=== PATIENT | male | born 1935 | race Caucasian/White ===

== ENCOUNTER 2021-06-09 15:10 | Outpatient (CLI) | payer MEDICARE, BC, SELFPAY ==
--- NOTE | ~2021-06-09 | XR_ITS ---
EXAMINATION: XR lumbar spine min 4V DATE: 06/09/2021 15:49 INDICATION: Low back pain TECHNIQUE: Anteroposterior, lateral, and bilateral oblique views of the lumbar spine, and cone-down l ateral view of the lumbosacral junction were obtained. COMPARISON: MRI, 10/24/2017 FINDINGS: There are 3 mm of stable retrolisthesis of L1 on L2, 5 mm of stable retrolisthesis of L2 on L3, 3 mm of stable retrolisthesis of L3 on L4, and 3 mm of stable anterolisthesis of L5 on S1. There are 5 mm of new anterolisthesis of L4 on L5. The vertebral body heights are maintained. There is mod erate loss of intervertebral disc space height at L2-3, L4-5, and L5-S1. The vertebral body heights a re maintained. Degenerative osteophytes project from the anterior endplates of multiple vertebral bod ies. 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 Lumbar dextrocurvature is note d. There are changes of left hip arthroplasty. IMPRESSION: 1. Moderate to severe lumbar spondylosis with interval worsening. Reviewed, dictated and finalized at location F.
== END 2021-06-09 15:11 | disposition home or self-care (01) ==
LOC: ANHIMG 15:16
PROVIDERS: PCP Family Medicine; Visit Provider Family Medicine
DX: M47.896 Other spondylosis, lumbar region (principal)
CPT/HCPCS: 72110

== ENCOUNTER 2021-10-17 11:01 | Emergency (ER) | payer MEDICARE, BC, SELFPAY ==
--- NOTE | ~2021-10-17 | XR_ITS ---
XR ankle LT min 3V 10/17/2021 11:34 INDICATION: Left ankle pain PROCEDURE: 4 views left ankle COMPARISON: No prior studies for comparison. FINDINGS: Fracture, dislocation or subluxation is not identified. There are vascular calcifications. There are degenerative calcaneal enthesophytes. The soft tissues appear within normal limits. No for eign bodies are identified. IMPRESSION: 1: NO ACUTE BONE OR JOINT ABNORMALITY IDENTIFIED. Reviewed, dictated and finalized at location B. PURPOSE CLERK
--- NOTE | 2021-10-17 11:11 | ED.EXTPRO ---
HPI - Extremity Problem General Chief complaint: Extremity Problem,Nontraumatic Stated complaint: Lt Ankle Pain History of Present Illness HPI Narrative: This is a 85 year old male that presents to the emergency room complaining of a rash with some redness of the ankle and pain to the ankle that is shooting pain without any injuries noted. no Diabetes and patient has dementia Related Data Home Medications Medication Instructions Recorded Confirmed aspirin 81 mg tablet,delayed 81 mg PO DAILY 10/09/19 10/17/21 release nybmoacmenie-rbb-lklix acid-vit 1 tablet PO DAILY 04/19/20 10/17/21 K-lycop 400 mcg-20 mcg-370 mcg tablet vitamin B complex 1 tablet PO DAILY 08/23/20 08/30/21 donepezil 5 mg tablet 5 mg PO QHS 04/28/21 10/17/21 omega-3 fatty acids 500 mg PO DAILY 04/28/21 10/17/21 Allergies Allergy/AdvReac Type Severity Reaction Status Date / Time lisinopril Allergy Unknown cough Verified 08/30/21 13:33 No Known Allergies Allergy Unknown Verified 08/30/21 13:33 Review of Systems Review of Systems: ankle reddness, rash, erythema, All systems reviewed & are unremarkable except as noted in HPI and below PMFSH Past Medical History Medical History Cataract Esophagitis intermediate use of drug Surgical History Surgical History H/O angioplasty H/O arthroplasty History of back surgery Family History Family History Mother Family history of malignant neoplasm of breast in first degree relative Other No family history of cardiovascular disease Social History Social History Alcohol intake: never Substance use type: does not use Gender identity (if verbalized by the patient): Male Comments At time as signature, I have reviewed and agree with nursing past medical, social, surgical and family history. Please see nursing chart for further information. There is no relevant family history pertinent to the presenting complaint. Exam Narrative: GENERAL:Well-appearing, well-nourished, and in no acute distress. HEAD:Normocephalic EYES: PERRLA ENT: Nares clear, no rhinorrhea or epistaxis. Mucous membranes moist. CHEST: No respiratory distress. HEART: Regular rate and rhythm decreased peripheral pulses. ABDOMEN: Soft, nontender, nondistended, normal active bowel sounds. EXTREMITIES:decreased range of motion. 1+ edema. SKIN: Warm, dry, no rash. right ankle area with erythema and some warmth noted NEURO: No focal deficits. Alert and oriented x2. Course Course Level of Care: Express Care Visit Vital Signs Vital signs: Vital Signs Temperature 98.5 F 10/17/21 11:14 Pulse Rate 73 10/17/21 11:14 Respiratory Rate 20 10/17/21 11:14 Blood Pressure 128/83 10/17/21 11:14 Pulse Oximetry 96 10/17/21 11:14 Temperature 98.5 F 10/17/21 11:14 Pulse Rate 73 10/17/21 11:14 Respiratory Rate 20 10/17/21 11:14 Blood Pressure 128/83 10/17/21 11:14 Pulse Oximetry 96 10/17/21 11:14 Discharge Plan Discharge Clinical Impression: Cellulitis of left ankle, Rash and nonspecific skin eruption, Pain Patient Disposition: Home, Self-Care Condition: Stable Instructions: Antibiotic Form, Cephalexin (By mouth), Cellulitis (ED), Acute Rash (ED) Additional Instructions: Instructions use skin creams/lotion, such as those containing calamine or pramoxine to reduce itchiness Avoid scratching when possible to prevent worsening of the condition and disruption of the skin that could lead to bacterial infection To relieve itching, place a cool washcloth or some ice over the area that itches, rather than scratching Return to the office or seek ER visit if condition is not improving or worsens with fever, swelling, difficulty breathing or swallowing. Presc
[2021-10-17 11:14] VITALS: BP 128/83; PULSE 73; RESP 20; TEMP 36.9; O2SAT 96
== END 2021-10-17 12:10 | disposition home or self-care (01) ==
PROVIDERS: Emergency Provider Nurse Practitioner Family; PCP Family Medicine
DX: L03.116 Cellulitis of left lower limb (principal); R21 Rash and other nonspecific skin eruption; R52 Pain, unspecified; F03.90 Unspecified dementia, unspecified severity, without behavioral disturbance, psychotic disturbance, mood disturbance, and anxiety; Z95.1 Presence of aortocoronary bypass graft
CPT/HCPCS: 73610; 99213; G0463

== ENCOUNTER 2022-09-20 12:52 | Outpatient (CLI) | payer MEDICARE, BC, SELFPAY ==
--- NOTE | ~2022-09-20 | CT_ITS ---
EXAMINATION: CT UE LT wo/w con DATE: 09/20/2022 13:25 INDICATION: Squamous cell carcinoma TECHNIQUE: High resolution computed tomography (CT) of the left arm from the elbow through the hand w as performed without and with 100 mL Omnipaque-350 intravenous contrast. The patient was unable to el evate the arm above the head and therefore the patient was scanned in the supine position with the le ft forearm placed across the patient's abdomen Additional sagittal and coronal reconstructions were p erformed. Automated exposure control and iterative reconstruction technique were employed. The dose-l ength product was 633.09 mGy-cm. COMPARISON: None FINDINGS: Bone alignment is normal. No fracture. Polyarticular osteoarthritis, severe at the first carpometacar pal joint and mild at the left elbow, triscaphe joint and multiple interphalangeal joints. No suspici ous lytic or blastic bone lesions. There is a tiny metallic foreign body in the soft tissues along th e dorsal head of the third metacarpal reportedly near the site of a reported squamous cell carcinoma resection. No abnormal soft tissue masses or epitrochlear lymph nodes at the elbow. No left elbow mitzi nt effusion or other abnormal fluid collections. Calcified nodule at the right lower lobe, single hepatic calcific location and multiple small splenic calcifications, all consistent with old granulomatous disease., Bladder, pancreas, bilateral adrenal glands and kidneys are normal. There are few diverticula along the proximal descending colon without adjacent inflammatory stranding to suggest either discitis. Remaining visualized bowels in the abdom en are unremarkable. No pathologically enlarged abdominal lymphadenopathy. There are bridging osteoph ytes at a few levels in the lower thoracic and upper lumbar spine consistent with diffuse idiopathic skeletal hyperostosis (DISH). Mild upper lumbar spondylosis with 3-4 mm retrolisthesis L1 on L2 and L 2 on L3. IMPRESSION: 1. Tiny metallic foreign body in the soft tissues dorsal to the head of the third metacarpal which ma y be related to reported resection of a prior squamous cell carcinoma. 2. No suspicious lytic or blastic bone lesions, abnormal masses, pathologically enlarged lymph nodes or fluid collections in the left hand, wrist, 4 more distal upper arm. Of note, given the significant degree of soft tissue contrast, small pghzh-xm-oxlf pre and postcontrast MRI localized to the region of concern would be more sensitive than CT for residual or locally recurrent disease. Reviewed, dictated and finalized at location A. N DRIER IMPRESSION: 1. Tiny metallic foreign body in the soft tissues dorsal to the head of the thi rd metacarpal which may be related to reported resection of a prior squamous ce ll carcinoma. 2. No suspicious lytic or blastic bone lesions, abnormal masses, pathologically enlarged lymph nodes or fluid collections in the left hand, wrist, 4 more dist al upper arm. Of note, given the significant degree of soft tissue contrast, sm all kaufc-nm-kdys pre and postcontrast MRI localized to the region of concern w ould be more sensitive than CT for residual or locally recurrent disease.
== END 2022-09-20 12:53 | disposition home or self-care (01) ==
PROVIDERS: PCP Family Medicine
DX: C44.92 Squamous cell carcinoma of skin, unspecified (principal); S60.852A Superficial foreign body of left wrist, initial encounter; X58.XXXA Exposure to other specified factors, initial encounter
CPT/HCPCS: 73202; Q9967

== ENCOUNTER 2023-07-31 13:22 | Inpatient (IN) | payer MEDICARE, BC, SELFPAY ==
--- NOTE | ~2023-07-31 | CT_ITS ---
EXAMINATION: CT brain wo con DATE: 07/31/2023 14:55 INDICATION: head injury . TECHNIQUE: Computed tomography (CT) of the head was performed without intravenous contrast. The mA wa s adjusted according to patient size. Iterative reconstruction technique was employed. The dose-lengt h product was 605.33 mGy-cm. COMPARISON: None. FINDINGS: No acute intracranial hemorrhage or extra-axial fluid collection. No hydrocephalus, mass, or herniation. No acute ischemic infarct. Unremarkable dural venous sinus attenuation. No acute osseous abnormality. The aerated spaces are clear. Moderate atrophy and severe chronic white matter change. Atherosclerotic intracranial calcification. Bilateral lens replacements. Old bilateral basal ganglia calcifications and lacunar infarcts. Old ivana ateral cerebellar infarcts. 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 IMPRESSION: No acute intracranial process. Reviewed, dictated and finalized at location K. OW GLAZIER
--- NOTE | ~2023-07-31 | XR_ITS ---
EXAMINATION: XR chest 2V DATE: 07/31/2023 14:49 INDICATION: Weakness TECHNIQUE: Frontal and lateral views of the chest are obtained COMPARISON: None available FINDINGS: There is mild atelectasis of the lung bases. No pleural effusion or pneumothorax. The cardi omediastinal silhouette is normal. There are bridging osteophytes at multiple levels in the spine, co nsistent with diffuse idiopathic skeletal hyperostosis (DISH). IMPRESSION: 1. Mild atelectasis of the lung bases. Reviewed, dictated and finalized at location L. ING MACHINE FEEDER
[2023-07-31 13:27] VITALS: BP 112/65; PULSE 74; RESP 20; TEMP 36.5; O2SAT 95
--- NOTE | 2023-07-31 13:33 | ECG_ITS ---
Measurements Intervals [place] Rate: 77 P: 60 NM: 152 QRS: -49 QRSD: 142 T: 67 QT: 401 QTc: 456 Interpretive Statements SINUS RHYTHM FREQUENT ATRIAL PREMATURE COMPLEXES LEFT AXIS DEVIATION RIGHT BUNDLE BRANCH BLOCK INFERIOR INFARCT, AGE INDETERMINATE BASELINE ARTIFACT- I, II, III, AVR, AVL, AVF, V3, V5 ABNORMAL ECG NO PREVIOUS ECG AVAILABLE FOR COMPARISON Electronically Signed On 07-31-2023 13:59:05 FURNITURE RESTORER by Shan Rivera D.O.
[2023-07-31 13:51] LABS: Basophils Absolute Auto 0.1 K/mm3 (0.0-0.1); Basophils Percent Auto 0.5 % (0.2-1.2); Eosinophils Absolute Auto 0.2 K/mm3 (0-0.3); Eosinophils Percent Auto 1.3 % (0-4.4); Immature Granulocyte Absolute 0.03 K/mm3 (0.00-0.031); Immature Granulocyte Percent A 0.3 % (0-0.5); Lymphocytes Absolute Auto 2.15 K/mm3 (0.9-3.2); Lymphocytes Percent Auto 18.9 % (18.3-44.2); Mean Corpuscular HGB Conc 34.8 g/dl (32-36); Mean Corpuscular Hemoglobin 30.3 pg (26-34); Mean Corpuscular Volume 87.1 fl (80-100); Mean Platelet Volume 10.1 fl (7.4-10.4); Monocytes Absolute Auto 1.3 K/mm3 (0.1-0.6); Monocytes Percent Auto 11.2 % (2.6-8.5); Neutrophils Absolute Auto 7.7 K/mm3 (1.3-6.7); Neutrophils Percent Auto 67.8 % (45.5-73.1); Platelet Count Result 180 k/mm3 (150-375); Red Blood Count 5.28 M/mm3 (4.6-6.20); Red Cell Distribution Width 12.6 % (11.5-14.5); White Blood Count 11.4 K/mm3 (4.5-10.0)
[2023-07-31 14:06] LABS: Alanine Aminotransferase 19 U/L (6-50); Albumin Level 4.7 g/dL (3.5-5.1); Alkaline Phosphatase 92 U/L (38-126); Anion Gap 11 mmol/L (8-16); Aspartate Amino Transferase 22 U/L (17-59); Blood Urea Nitrogen 27 mg/dL (9-20); Calcium 9.8 mg/dL (8.4-10.2); Carbon Dioxide 26 mmol/L (22-30); Chloride 102 mmol/L (98-107); Estimated Glomerular Filt Rate 44; Glucose 99 mg/dL (65-110); Potassium 3.4 mmol/L (3.4-5.0); Sodium 139 mmol/L (137-145)
[2023-07-31 14:13] VITALS: BP 120/77; PULSE 68; RESP 19; O2SAT 92
--- NOTE | 2023-07-31 14:33 | ED.NAVMDI ---
HPI - Nausea/Vomiting/Diarrhea General Chief complaint: Nausea/Vomiting/Diarrhea Stated complaint: Nausea, weak Time Seen by Provider: 07/31/23 14:21 History of Present Illness HPI Narrative: Pt has intermittent vomiting for two weeks per family. Pt has now gotten so weak that he has trouble walking and last night he had a ground level fall. Pt did not strike head or lose consciousness and denies injury but family is concerned about his progressive weakness and now falls. Related Data Home Medications Medication Instructions Recorded Confirmed aspirin 81 mg tablet,delayed 81 mg PO DAILY 10/09/19 07/31/23 release xpzzwmeeoect-yvv-sstac acid-vit 1 tablet PO DAILY 04/19/20 07/31/23 K-lycop 400 mcg-20 mcg-370 mcg tablet (Men's 50 Plus Multivitamin) vitamin B complex (B 1 tablet PO DAILY 08/23/20 07/31/23 Complex-Vitamin B12 tablet) omega-3 fatty acids 500 mg PO DAILY 04/28/21 07/31/23 memantine 5 mg tablet 5 mg PO BID 10/16/22 07/31/23 levothyroxine 13 mcg capsule 13 mcg PO DAILY 07/31/23 07/31/23 Allergies Allergy/AdvReac Type Severity Reaction Status Date / Time lisinopril Allergy Unknown cough Verified 07/31/23 17:48 Review of Systems Review of Systems: All systems reviewed & are unremarkable except as noted in HPI and below PMFSH Past Medical History Medical History (Updated 07/31/23 @ 17:47 by Behzad Quarles MD) Cataract Dyslipidemia Esophagitis senior care use of drug Severe recurrent major depression Surgical History Surgical History H/O angioplasty H/O arthroplasty History of back surgery Family History Family History Mother Family history of malignant neoplasm of breast in first degree relative Other No family history of cardiovascular disease Social History Social History Smoking status: Never smoker Alcohol intake: never Substance use: never Substance use type: does not use Lack of Transportation: No Lack of Food: Never True Current Housing: I Have Housing Concerned About Future Housing: No Difficulty Paying Gas/Electric Bills: No Difficulty Paying for Meds: No Currently Unemployed: No Education: Decline to Answer Difficulty w/ Childcare or Family Care: No Living arrangements: with family Occupation/Education: retired Gender identity (if verbalized by the patient): Male Spiritual care concerns: No Exam Const: General: healthy appearing and no acute distress Nutritional Appearance: well nourished Orientation/consciousness: patient oriented x3 Limitations: no limitations HENMT: Head: normal to inspection Mouth: Yes Normal oral and palatal mucosa present Eyes: Conjunctivae: conjunctivae normal Pupils: Equal, round and reactive pupils present EOM: EOMs intact bilaterally Neck: Neck: normal visual inspection and no lymphadenopathy Resp: Effort & Inspection: normal respiratory effort Auscultation: clear to auscultation bilaterally Cardio: Rate: regular rate GI: GI Palp: Yes Soft to palpation and No Tenderness to palpation present (GI) Auscultation: normal bowel sounds Back/Spine/Pelvis: Back: no CVA tenderness Skin: General skin exam: normal color Wounds: no wounds Neuro: General: patient oriented x3, moves all extremities, no meningeal signs, no focal motor deficits and CN's II-XI intact bilaterally Speech: normal speech Extrem: General: normal to inspection and no clubbing, cyanosis or edema Psych: Mental Status: mental status grossly normal Affect: normal affect Attitude: cooperative Course Vital Signs Vital signs: Vital Signs Temperature 97.7 F 07/31/23 13:27 Pulse Rate 74 07/31/23 13:27 Respiratory Rate 20 07/31/23 13:27 Blood Pressure 112/65 07/31/23 13:27 Pulse Oximetry 95 07/31/23 13:27 Oxygen Delivery Room Air
[2023-07-31 16:14] LABS: Appearance Urine Clear (Clear); Bacteria Urine None Seen /hpf; Bilirubin Urine Negative (Negative); Blood Urine Negative (Negative); Color Urine Dark Yellow (Yellow); Glucose Urine UA Negative (Negative); Ketones Urine Trace mg/dL (Negative); Leukocyte Esterase Ur Trace LEU/UL (Negative); Nitrate Urine Negative (Negative); Non Pathogenic Casts 0-2; Protein Urine 1+ mg/dL (Negative); RBC Urine 0-2 /hpf (0-2); Squamous Epithelial Cell Urine None seen /hpf (Few); WBC Urine 0-5 /hpf
[2023-07-31 16:16] LABS: Add Urine Microscopic? YES
--- NOTE | 2023-07-31 16:47 | PM.IMHP ---
H&P: HPI History of Present Illness Date/Time: 07/31/23 16:48 Chief Complaint: Fatigue Anorexia Nausea; Vomting Narrative: Jason Jean-Baptiste is an 87 yo M with a mHx significant for dementia, Hypertension, dyslipidemia, [place], GERD, depression, inactivity and Hypothyroidism. With the following information gathered from his and daughter due to dementia and difficult hearing, he is said to have over the last few months, resorted to a sedentary lifestyle. When he eventually ambulates, he is stooped and unstable; with no know modifying factors, it came to be associated wtih a poor appetite, poor water intake and worsening fatigue which affected his ADLs. There were no recorded episodes of fevers, chills, rigors, flank pain, cough, chest pain, leg swelling, dizziness or LOC. He is however said to have frequent nausea with non-bloody, sometimes bilious emesis, void of blood. His stools are constipated but regular; With his state worsening, he required multiple hands to assist him to the vehicle in a bid to get him to the ED for expert evaluation. He does not smoke/chew tobacco, vape nicotine, drink alcohol or consume recreational/illicit drugs; his family Hx is signficant for dementia in his mother ED work-up findings: Na 139 K 3.4 BUn 27 Cr 1.5 Hb 16 WBC 11 UA: Trace LE; +ketones; -ve nitrites; CXR: Bibasilar atelectasis He will be admitted, evaluated and managed for physical deconditioning with a mild UTI and likely GERD causing nausea and emesis. 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 Severe recurrent major depression Surgical History Surgical History H/O angioplasty H/O arthroplasty History of back surgery Family History Family History Mother Family history of malignant neoplasm of breast in first degree relative Other No family history of cardiovascular disease Social History Social History Smoking status: Never smoker Alcohol intake: never Substance use type: does not use Lack of Transportation: No Lack of Food: Never True Current Housing: I Have Housing Concerned About Future Housing: No Difficulty Paying Gas/Electric Bills: No Difficulty Paying for Meds: No Currently Unemployed: No Education: Decline to Answer Difficulty w/ Childcare or Family Care: No Living arrangements: with family Occupation/Education: retired Gender identity (if verbalized by the patient): Male Spiritual care concerns: No Meds Home Medications and Allergies Home Medications Medication Instructions Recorded Confirmed Type aspirin 81 mg tablet,delayed 81 mg PO DAILY 10/09/19 05/08/23 History release thvtnjgbkmev-kpk-zjkoi acid-vit 1 tablet PO DAILY 04/19/20 05/08/23 History K-lycop 400 mcg-20 mcg-370 mcg tablet (Men's 50 Plus Multivitamin) vitamin B complex (B 1 tablet PO DAILY 08/23/20 05/08/23 History Complex-Vitamin B12 tablet) omega-3 fatty acids 500 mg PO DAILY 04/28/21 05/08/23 History amlodipine 10 mg tablet 10 mg PO DAILY #90 tabs 09/04/22 05/08/23 Rx rosuvastatin 5 mg tablet 5 mg PO DAILY #90 tabs 09/04/22 05/08/23 Rx memantine 5 mg tablet 5 mg PO BID 10/16/22 05/08/23 History donepezil 10 mg tablet 10 mg PO QHS #90 tabs 11/06/22 05/08/23 Rx hydrochlorothiazide 25 mg tablet 25 mg PO DAILY #90 tabs 12/04/22 05/08/23 Rx sertraline 50 mg tablet 50 mg PO DAILY #90 tabs 01/05/23 05/08/23 Rx prochlorperazine maleate 5 mg 5 mg PO Q6-8H PRN nausea and 03/13/23 05/08/23 Rx tablet vomiting #90 tabs levothyroxine 13 mcg capsule See Rx Instructions .Route 08
[2023-07-31 17:11] VITALS: BP 131/82; PULSE 72; RESP 16; O2SAT 95
[2023-07-31 17:12] VITALS: BP 131/82; PULSE 71; RESP 20; O2SAT 95
--- NOTE | 2023-07-31 17:48 | ADMGEN ---
This patient, Jason Jean-Baptiste, was admitted to 3 [facility] Surg Room 304-01. Patient/family oriented to hospital policies and general routines including ID bracelet, bed and alarms, visiting hours, pain management, procedures, bathroom and other care routines, personal items, smoking policy, room service/diet, and visiting hours. Information on how to activate the Rapid Response Team has been discussed. Patient/Family are encouraged to report perceived risks to care and to ask questions if they do not understand what they are told or what they should do.
[2023-07-31 18:04] LABS: Free T4 Free Thyroxine 1.28 ng/mL (0.78-2.19)
[2023-07-31 18:06] VITALS: BP 137/85; PULSE 58; RESP 18; TEMP 36.3; O2SAT 93
[2023-07-31] MEDS: SODIUM CHLORIDE 0.9% IV 1,000 ML 100 ML IV CONT (18:34)
[2023-07-31 22:00] VITALS: BP 129/72; PULSE 69; RESP 22; TEMP 36.6; O2SAT 99
[2023-08-01 05:54] LABS: Basophils Absolute Auto 0.1 K/mm3 (0.0-0.1); Basophils Percent Auto 0.8 % (0.2-1.2); Eosinophils Absolute Auto 0.2 K/mm3 (0-0.3); Hematocrit 40.8 % (42.0-52.0); Hemoglobin 13.9 g/dL (14.0-18.0); Immature Granulocyte Absolute 0.04 K/mm3 (0.00-0.031); Immature Granulocyte Percent A 0.4 % (0-0.5); Lymphocytes Absolute Auto 2.76 K/mm3 (0.9-3.2); Lymphocytes Percent Auto 24.6 % (18.3-44.2); Mean Corpuscular HGB Conc 34.1 g/dl (32-36); Mean Corpuscular Hemoglobin 30.5 pg (26-34); Mean Corpuscular Volume 89.7 fl (80-100); Mean Platelet Volume 10.3 fl (7.4-10.4); Monocytes Absolute Auto 1.5 K/mm3 (0.1-0.6); Monocytes Percent Auto 12.9 % (2.6-8.5); Neutrophils Absolute Auto 6.7 K/mm3 (1.3-6.7); Neutrophils Percent Auto 59.3 % (45.5-73.1); Platelet Count Result 160 k/mm3 (150-375); Red Blood Count 4.55 M/mm3 (4.6-6.20); Red Cell Distribution Width 12.5 % (11.5-14.5); White Blood Count 11.2 K/mm3 (4.5-10.0)
[2023-08-01 06:00] VITALS: BP 119/70; PULSE 60; RESP 18; TEMP 36.4; O2SAT 90
[2023-08-01 06:15] LABS: Alanine Aminotransferase 16 U/L (6-50); Albumin Level 3.8 g/dL (3.5-5.1); Alkaline Phosphatase 74 U/L (38-126); Anion Gap 7 mmol/L (8-16); Aspartate Amino Transferase 20 U/L (17-59); Bilirubin,Total 0.9 mg/dL (0.2-1.3); Blood Urea Nitrogen 23 mg/dL (9-20); Calcium 8.6 mg/dL (8.4-10.2); Carbon Dioxide 27 mmol/L (22-30); Chloride 105 mmol/L (98-107); Estimated Glomerular Filt Rate 48; Glucose 94 mg/dL (65-110); Potassium 2.8 mmol/L (3.4-5.0); Sodium 139 mmol/L (137-145)
[2023-08-01 06:40] VITALS: BMI 28.8
[2023-08-01] MEDS: POTASSIUM CHLORIDE INJ 40 MEQ in SODIUM CHLORIDE 0.9% IV 500 ML 130 MEQ IVPB (07:38)
[2023-08-01] MEDS: ENOXAPARIN 40 MG/0.4 ML SYRINGE SUB-Q (08:16)
[2023-08-01 11:16] VITALS: BMI 28.8
--- NOTE | 2023-08-01 12:34 | PM.IMPN ---
Progress Note: A&P Assessment and Plan (1) Physical deconditioning: Code(s): R53.81 - Other malaise Status: Acute Assessment and Plan: Likely 2/2 chronic sedentary status PT/OT evaluation Dementia likely plays a role in decline; may hamper physical rehabilitation. (2) GERD (gastroesophageal reflux disease): Qualifiers: Esophagitis presence: without esophagitis Qualified Code(s): K21.9 - Gastro-esophageal reflux disease without esophagitis Code(s): K21.9 - Gastro-esophageal reflux disease without esophagitis Status: Acute Assessment and Plan: Chronic Probably aggravated by laying supine (3) UTI (urinary tract infection): Qualifiers: Hematuria presence: without hematuria Urinary tract infection type: site unspecified Qualified Code(s): N39.0 - Urinary tract infection, site not specified Code(s): N39.0 - Urinary tract infection, site not specified Status: Acute Assessment and Plan: Ceftriaxone con't (4) MAMTA (acute kidney injury): Code(s): N17.9 - Acute kidney failure, unspecified Status: Acute Assessment and Plan: Probably 2/2 poor PO intake 1. IVFs; Monitor renal function 2. K+ 2.8 this am, given IV replacement and will recheck in am (5) Nausea & vomiting: Qualifiers: Vomiting type: unspecified Qualified Code(s): R11.2 - Nausea with vomiting, unspecified Code(s): R11.2 - Nausea with vomiting, unspecified Status: Acute Assessment and Plan: Likely 2/2 chronic supine positioning Hx of GERD Elevate head of bed; 45+ (6) Dementia: Qualifiers: Alzheimer's disease onset: other onset Dementia behavioral or psychological symptom: with mood disturbance Dementia severity: severe Dementia type: Alzheimer's Qualified Code(s): G30.8 - Other Alzheimer's disease; F02.C3 - Dementia in other diseases classified elsewhere, severe, with mood disturbance Code(s): F03.90 - Unspecified dementia, unspecified severity, without behavioral disturbance, psychotic disturbance, mood disturbance, and anxiety Status: Chronic Assessment and Plan: Falls and safety precautions Resume Donepezil (7) Hypertension: Qualifiers: Hypertension type: primary hypertension Qualified Code(s): I10 - Essential (primary) hypertension Code(s): I10 - Essential (primary) hypertension Status: Chronic Assessment and Plan: Resume anti-hypertensives Hold KAYLEE-i and diuretics in light of MAMTA (8) Severe recurrent major depression: Qualifiers: Psychotic features: without psychotic features Qualified Code(s): F33.2 - Major depressive disorder, recurrent severe without psychotic features Code(s): F33.2 - Major depressive disorder, recurrent severe without psychotic features Status: Chronic Assessment and Plan: Resume Sertraline (9) Dyslipidemia: Code(s): E78.5 - Hyperlipidemia, unspecified Status: Chronic Assessment and Plan: Resume Statin Plan IVFs; Monitor renal function; Avoid nephrotoxins Resume Home medications for dyslipidemia, HTN, depression, Hypothyroidism PT/OT eval and Rx Falls and safety precautions Subjective Date/time seen: 08/01/23 12:34 Interval history: Patient is an 87 YO male with a PMH significant for dementia, Hypertension, dyslipidemia, [place], GERD, depression, inactivity and Hypothyroidism.He was a bit agitated this morning and wanted me to call his to take him out of here. He was confused as to why he is here and wanted to go home. He quickly became apologetic and kind, he was not abrasive but did inaja back to stating his educational and work history. He denies any n/v this morning, but has not eaten breakfast. He has progressively weakened at home and it is affecting his ability to perform ADL. PT and OT consulted for this.He is however said to have frequent nausea with non-
[2023-08-01] MEDS: SODIUM CHLORIDE 0.9% IV 1,000 ML 100 ML IV CONT ×2 (12:49→22:19)
[2023-08-01 14:00] VITALS: BP 103/66; PULSE 73; RESP 16; TEMP 36.4; O2SAT 94
[2023-08-01 20:35] VITALS: BP 123/83; PULSE 72; RESP 18; TEMP 36.4; O2SAT 95
[2023-08-02] MEDS: ACETAMINOPHEN 325 MG TABLET 650 MG PO (05:37)
[2023-08-02 05:52] VITALS: BP 90/52; PULSE 66; RESP 17; TEMP 36.5; O2SAT 97
[2023-08-02 06:04] LABS: Basophils Absolute Auto 0.1 K/mm3 (0.0-0.1); Basophils Percent Auto 0.8 % (0.2-1.2); Eosinophils Absolute Auto 0.3 K/mm3 (0-0.3); Eosinophils Percent Auto 2.9 % (0-4.4); Hematocrit 41.1 % (42.0-52.0); Hemoglobin 13.7 g/dL (14.0-18.0); Immature Granulocyte Absolute 0.04 K/mm3 (0.00-0.031); Immature Granulocyte Percent A 0.4 % (0-0.5); Lymphocytes Absolute Auto 3.05 K/mm3 (0.9-3.2); Lymphocytes Percent Auto 27.6 % (18.3-44.2); Mean Corpuscular HGB Conc 33.3 g/dl (32-36); Mean Corpuscular Hemoglobin 30.4 pg (26-34); Mean Corpuscular Volume 91.1 fl (80-100); Mean Platelet Volume 10.6 fl (7.4-10.4); Monocytes Absolute Auto 1.4 K/mm3 (0.1-0.6); Monocytes Percent Auto 12.8 % (2.6-8.5); Neutrophils Absolute Auto 6.1 K/mm3 (1.3-6.7); Neutrophils Percent Auto 55.5 % (45.5-73.1); Platelet Count Result 154 k/mm3 (150-375); Red Blood Count 4.51 M/mm3 (4.6-6.20); Red Cell Distribution Width 12.8 % (11.5-14.5)
[2023-08-02 06:13] LABS: Alanine Aminotransferase 16 U/L (6-50); Albumin Level 3.7 g/dL (3.5-5.1); Alkaline Phosphatase 67 U/L (38-126); Anion Gap 7 mmol/L (8-16); Aspartate Amino Transferase 21 U/L (17-59); Bilirubin,Total 0.8 mg/dL (0.2-1.3); Blood Urea Nitrogen 20 mg/dL (9-20); Calcium 8.3 mg/dL (8.4-10.2); Carbon Dioxide 26 mmol/L (22-30); Chloride 109 mmol/L (98-107); Estimated CRCL calculation 27 ml/min; Estimated Glomerular Filt Rate 44; Glucose 88 mg/dL (65-110); Potassium 3.1 mmol/L (3.4-5.0); Sodium 142 mmol/L (137-145)
[2023-08-02 08:00] VITALS: BP 111/64; PULSE 61; RESP 14; TEMP 36.2; O2SAT 96
[2023-08-02] MEDS: ENOXAPARIN 40 MG/0.4 ML SYRINGE SUB-Q (09:26)
[2023-08-02] MEDS: SODIUM CHLORIDE 0.9% IV 1,000 ML 100 ML IV CONT (10:01)
[2023-08-02] MEDS: POTASSIUM CHLORIDE INJ 40 MEQ in SODIUM CHLORIDE 0.9% IV 500 ML 130 MEQ IVPB (10:02)
[2023-08-02 12:00] VITALS: BP 115/69; PULSE 61; RESP 16; TEMP 36.7; O2SAT 97
--- NOTE | 2023-08-02 13:13 | PM.IMPN ---
Progress Note: A&P Assessment and Plan (1) Physical deconditioning: Code(s): R53.81 - Other malaise Status: Acute Assessment and Plan: Likely 2/2 chronic sedentary status PT/OT evaluation - would likely benefit from SNF placement at discharge Dementia likely plays a role in decline; may hamper physical rehabilitation. (2) GERD (gastroesophageal reflux disease): Qualifiers: Esophagitis presence: without esophagitis Qualified Code(s): K21.9 - Gastro-esophageal reflux disease without esophagitis Code(s): K21.9 - Gastro-esophageal reflux disease without esophagitis Status: Acute Assessment and Plan: Chronic, no issues while inpatient Keep head up bed at 45 degrees (3) UTI (urinary tract infection): Qualifiers: Urinary tract infection type: site unspecified Hematuria presence: without hematuria Qualified Code(s): N39.0 - Urinary tract infection, site not specified Code(s): N39.0 - Urinary tract infection, site not specified Status: Acute Assessment and Plan: Ceftriaxone con't continue to monitor WBC (4) MAMTA (acute kidney injury): Code(s): N17.9 - Acute kidney failure, unspecified Status: Acute Assessment and Plan: Probably 2/2 poor PO intake 1. IVFs; Monitor renal function 2. K+ 3.1 this am, given IV replacement and will recheck in am (5) Nausea & vomiting: Qualifiers: Vomiting type: unspecified Qualified Code(s): R11.2 - Nausea with vomiting, unspecified Code(s): R11.2 - Nausea with vomiting, unspecified Status: Acute Assessment and Plan: Likely 2/2 chronic supine positioning Hx of GERD Elevate head of bed; 45+ (6) Dementia: Qualifiers: Dementia type: Alzheimer's Alzheimer's disease onset: other onset Dementia severity: severe Dementia behavioral or psychological symptom: with mood disturbance Qualified Code(s): G30.8 - Other Alzheimer's disease; F02.C3 - Dementia in other diseases classified elsewhere, severe, with mood disturbance Code(s): F03.90 - Unspecified dementia, unspecified severity, without behavioral disturbance, psychotic disturbance, mood disturbance, and anxiety Status: Chronic Assessment and Plan: Falls and safety precautions Resume Donepezil (7) Hypertension: Qualifiers: Hypertension type: primary hypertension Qualified Code(s): I10 - Essential (primary) hypertension Code(s): I10 - Essential (primary) hypertension Status: Chronic Assessment and Plan: Resume anti-hypertensives Hold KAYLEE-i and diuretics in light of MAMTA (8) Severe recurrent major depression: Qualifiers: Psychotic features: without psychotic features Qualified Code(s): F33.2 - Major depressive disorder, recurrent severe without psychotic features Code(s): F33.2 - Major depressive disorder, recurrent severe without psychotic features Status: Chronic Assessment and Plan: Resume Sertraline (9) Dyslipidemia: Code(s): E78.5 - Hyperlipidemia, unspecified Status: Chronic Assessment and Plan: Resume Statin Subjective Date/time seen: 08/02/23 13:13 Interval history: Patient is an 87 YO male with a PMH significant for dementia, Hypertension, dyslipidemia, [place], GERD, depression, inactivity and Hypothyroidism. He was in a better mood this morning and getting ready to have OT work with him. He denies any n/v this morning, and ate his breakfast. He has progressively weakened at home and it is affecting his ability to perform ADL. Patient will stay for antibiotic therapy and monitor his labs as his WBC has not drastically decreased but his baseline looks to be on the higher end previously. Review of Systems Review of Systems: ROS unobtainable: Yes unobtainable due to mental status and other (Hard of hearing) Exam Const: General: no acute distress HENMT: Mouth: Yes moist m
[2023-08-02 16:00] VITALS: BP 105/63; PULSE 54; RESP 14; TEMP 36.6; O2SAT 97
[2023-08-02 20:55] VITALS: BP 120/72; PULSE 64; RESP 16; TEMP 36.3; O2SAT 93
[2023-08-03] MEDS: SODIUM CHLORIDE 0.9% IV 1,000 ML 100 ML IV CONT (03:04)
[2023-08-03 05:37] VITALS: BP 153/98; PULSE 59; RESP 16; TEMP 36.2; O2SAT 97
[2023-08-03 06:45] LABS: Basophils Absolute Auto 0.1 K/mm3 (0.0-0.1); Basophils Percent Auto 0.8 % (0.2-1.2); Eosinophils Absolute Auto 0.4 K/mm3 (0-0.3); Eosinophils Percent Auto 3.9 % (0-4.4); Hematocrit 39.8 % (42.0-52.0); Hemoglobin 13.5 g/dL (14.0-18.0); Immature Granulocyte Absolute 0.03 K/mm3 (0.00-0.031); Immature Granulocyte Percent A 0.3 % (0-0.5); Lymphocytes Percent Auto 22.5 % (18.3-44.2); Mean Corpuscular HGB Conc 33.9 g/dl (32-36); Mean Corpuscular Hemoglobin 30.4 pg (26-34); Mean Corpuscular Volume 89.6 fl (80-100); Monocytes Absolute Auto 1.2 K/mm3 (0.1-0.6); Neutrophils Absolute Auto 6.2 K/mm3 (1.3-6.7); Neutrophils Percent Auto 60.5 % (45.5-73.1); Platelet Count Result 149 k/mm3 (150-375); Red Blood Count 4.44 M/mm3 (4.6-6.20); Red Cell Distribution Width 12.6 % (11.5-14.5); White Blood Count 10.2 K/mm3 (4.5-10.0)
[2023-08-03 06:55] LABS: Alanine Aminotransferase 18 U/L (6-50); Albumin Level 3.6 g/dL (3.5-5.1); Alkaline Phosphatase 64 U/L (38-126); Anion Gap 6 mmol/L (8-16); Aspartate Amino Transferase 20 U/L (17-59); Bilirubin,Total 0.6 mg/dL (0.2-1.3); Blood Urea Nitrogen 21 mg/dL (9-20); Calcium 8.5 mg/dL (8.4-10.2); Carbon Dioxide 22 mmol/L (22-30); Chloride 113 mmol/L (98-107); Estimated CRCL calculation 29 ml/min; Estimated Glomerular Filt Rate 48; Glucose 89 mg/dL (65-110); Potassium 3.6 mmol/L (3.4-5.0); Sodium 141 mmol/L (137-145)
[2023-08-03 08:00] VITALS: BP 139/92; PULSE 60; RESP 16; TEMP 36.4; O2SAT 95
[2023-08-03 12:00] VITALS: BP 103/63; PULSE 56; RESP 14; TEMP 36.4; O2SAT 95
[2023-08-03] MEDS: ENOXAPARIN 40 MG/0.4 ML SYRINGE SUB-Q (13:35)
--- NOTE | 2023-08-03 15:50 | PM.IMPN ---
Progress Note: A&P Assessment and Plan (1) Physical deconditioning: Code(s): R53.81 - Other malaise Status: Acute Assessment and Plan: Likely 2/2 chronic sedentary status and dementia PT/OT evaluation - would likely benefit from SNF placement at discharge, awaiting placement (2) GERD (gastroesophageal reflux disease): Qualifiers: Esophagitis presence: without esophagitis Qualified Code(s): K21.9 - Gastro-esophageal reflux disease without esophagitis Code(s): K21.9 - Gastro-esophageal reflux disease without esophagitis Status: Acute Assessment and Plan: Chronic, no issues while inpatient Keep head up bed at 45 degrees (3) UTI (urinary tract infection): Qualifiers: Urinary tract infection type: site unspecified Hematuria presence: without hematuria Qualified Code(s): N39.0 - Urinary tract infection, site not specified Code(s): N39.0 - Urinary tract infection, site not specified Status: Acute Assessment and Plan: de-escalated to amoxicillin today PO continue to monitor WBC (4) MAMTA (acute kidney injury): Code(s): N17.9 - Acute kidney failure, unspecified Status: Acute Assessment and Plan: Probably 2/2 poor PO intake 1. Monitor renal function 2. hypokalemia resolved (5) Nausea & vomiting: Qualifiers: Vomiting type: unspecified Qualified Code(s): R11.2 - Nausea with vomiting, unspecified Code(s): R11.2 - Nausea with vomiting, unspecified Status: Resolved Assessment and Plan: Likely 2/2 chronic supine positioning Hx of GERD Elevate head of bed; 45+ (6) Dementia: Qualifiers: Dementia type: Alzheimer's Alzheimer's disease onset: other onset Dementia severity: severe Dementia behavioral or psychological symptom: with mood disturbance Qualified Code(s): G30.8 - Other Alzheimer's disease; F02.C3 - Dementia in other diseases classified elsewhere, severe, with mood disturbance Code(s): F03.90 - Unspecified dementia, unspecified severity, without behavioral disturbance, psychotic disturbance, mood disturbance, and anxiety Status: Chronic Assessment and Plan: Falls and safety precautions Resume Donepezil Awaiting SNF placement at d/c (7) Hypertension: Qualifiers: Hypertension type: primary hypertension Qualified Code(s): I10 - Essential (primary) hypertension Code(s): I10 - Essential (primary) hypertension Status: Chronic Assessment and Plan: Resume anti-hypertensives Hold KAYLEE-i and diuretics in light of MAMTA (8) Severe recurrent major depression: Qualifiers: Psychotic features: without psychotic features Qualified Code(s): F33.2 - Major depressive disorder, recurrent severe without psychotic features Code(s): F33.2 - Major depressive disorder, recurrent severe without psychotic features Status: Chronic Assessment and Plan: Resume Sertraline (9) Dyslipidemia: Code(s): E78.5 - Hyperlipidemia, unspecified Status: Chronic Assessment and Plan: Resume Statin Subjective Date/time seen: 08/03/23 15:50 Interval history: Patient is an 87 YO male with a PMH significant for dementia, Hypertension, dyslipidemia, [place], GERD, depression, inactivity and Hypothyroidism. He was in a better mood this morning and getting ready to have OT work with him. He denies any n/v this morning, and ate his breakfast. He has progressively weakened at home and it is affecting his ability to perform ADL. PT was walking him in the pool this morning and working with him. He seemed to be in better spirits. Patient will stay for antibiotic therapy and monitor his labs as his WBC is responding to therapy. Review of Systems Review of Systems: ROS unobtainable: Yes unobtainable due to mental status and other (Hard of hearing) Exam Const: General: no acute distress HENMT: Mouth: Yes
[2023-08-03 16:00] VITALS: BP 132/73; PULSE 54; RESP 14; TEMP 37; O2SAT 95
[2023-08-03 21:05] VITALS: BP 130/69; PULSE 60; RESP 16; TEMP 36.4; O2SAT 96
[2023-08-04 01:05] VITALS: BP 125/68; PULSE 58; RESP 16; TEMP 36.2; O2SAT 95
[2023-08-04 04:00] VITALS: BP 141/68; PULSE 58; RESP 20; TEMP 36.4; O2SAT 96
[2023-08-04 06:33] LABS: Hematocrit 39.7 % (42.0-52.0); Hemoglobin 13.4 g/dL (14.0-18.0); Mean Corpuscular HGB Conc 33.8 g/dl (32-36); Mean Corpuscular Hemoglobin 30.3 pg (26-34); Mean Corpuscular Volume 89.8 fl (80-100); Mean Platelet Volume 10.6 fl (7.4-10.4); Platelet Count Result 162 k/mm3 (150-375); Red Blood Count 4.42 M/mm3 (4.6-6.20); Red Cell Distribution Width 12.8 % (11.5-14.5)
[2023-08-04 06:43] LABS: Anion Gap 7 mmol/L (8-16); Blood Urea Nitrogen 17 mg/dL (9-20); Calcium 8.4 mg/dL (8.4-10.2); Carbon Dioxide 24 mmol/L (22-30); Chloride 109 mmol/L (98-107); Estimated CRCL calculation 33 ml/min; Estimated Glomerular Filt Rate 57; Glucose 87 mg/dL (65-110); Potassium 3.3 mmol/L (3.4-5.0); Sodium 140 mmol/L (137-145)
[2023-08-04 08:00] VITALS: BP 124/67; PULSE 63; RESP 14; TEMP 36.6; O2SAT 97
[2023-08-04] MEDS: AMOXICILLIN 500 MG CAPSULE PO (10:14)
[2023-08-04] MEDS: ENOXAPARIN 40 MG/0.4 ML SYRINGE SUB-Q (10:19)
[2023-08-04] MEDS: SODIUM CHLORIDE 0.9% IV 1,000 ML 100 ML IV CONT (10:19)
[2023-08-04] MEDS: POTASSIUM CHLORIDE 20 MEQ PACKET (FOR LIQUID) 40 MEQ PO (11:00)
[2023-08-04 12:00] VITALS: BP 114/57; PULSE 54; RESP 14; TEMP 36.8; O2SAT 97
--- NOTE | 2023-08-04 12:48 | PM.DS ---
DS: Admitting Diagnosis Discharge Date 08/04/23 Admitting Diagnosis nausea/vomiting, deconditioning DS: Discharge Diagnosis Discharge Diagnosis (1) Physical deconditioning: Code(s): R53.81 - Other malaise Status: Acute Assessment and Plan: Likely 2/2 chronic sedentary status and dementia PT/OT evaluation - will be discharged to SNF (2) GERD (gastroesophageal reflux disease): Qualifiers: Esophagitis presence: without esophagitis Qualified Code(s): K21.9 - Gastro-esophageal reflux disease without esophagitis Code(s): K21.9 - Gastro-esophageal reflux disease without esophagitis Status: Chronic Assessment and Plan: Chronic, no issues while inpatient Keep head up bed at 45 degrees (3) UTI (urinary tract infection): Qualifiers: Hematuria presence: without hematuria Urinary tract infection type: site unspecified Qualified Code(s): N39.0 - Urinary tract infection, site not specified Code(s): N39.0 - Urinary tract infection, site not specified Status: Acute Assessment and Plan: de-escalated to amoxicillin PO, will be discharged with to finish 7 day course WBC stable (4) MAMTA (acute kidney injury): Code(s): N17.9 - Acute kidney failure, unspecified Status: Acute Assessment and Plan: Probably 2/2 poor PO intake 2. hypokalemia 3.3 today, given PO 40 meq this am prior to d/c (5) Nausea & vomiting: Qualifiers: Vomiting type: unspecified Qualified Code(s): R11.2 - Nausea with vomiting, unspecified Code(s): R11.2 - Nausea with vomiting, unspecified Status: Resolved Assessment and Plan: (6) Dementia: Qualifiers: Alzheimer's disease onset: other onset Dementia behavioral or psychological symptom: with mood disturbance Dementia severity: severe Dementia type: Alzheimer's Qualified Code(s): G30.8 - Other Alzheimer's disease; F02.C3 - Dementia in other diseases classified elsewhere, severe, with mood disturbance Code(s): F03.90 - Unspecified dementia, unspecified severity, without behavioral disturbance, psychotic disturbance, mood disturbance, and anxiety Status: Chronic Assessment and Plan: Falls and safety precautions continue home medications D/C to SNF DS: Summary Hospital Course Hospital Course: Patient is an 87 YO male with a PMH significant for dementia, Hypertension, dyslipidemia, [place], GERD, depression, inactivity and Hypothyroidism. Per family, over the last few months, he has resorted to a sedentary lifestyle. When he eventually ambulates, he is stooped and unstable; with no know modifying factors, it came to be associated with a poor appetite, poor water intake and worsening fatigue which affected his ADLs. There were no recorded episodes of fevers, chills, rigors, flank pain, cough, chest pain, leg swelling, dizziness or LOC. He does have frequent nausea with non-bloody, sometimes bilious emesis, void of blood. Initial work-up findings:Na 139 K 3.4 BUN 27 Cr 1.5 Hb 16 WBC 11 UA: Trace LE; +ketones; + nitrites; no bacteria to reflex. CXR: Bibasilar atelectasis. He was admitted for treatment of UTI, observation of labs for possible infection. Nausea and vomiting likely due to GERD so precautions and lifestyle modifications were reviewed. He WBC have trended down and stabilized and is stable to d/c to SNF for continued PT/OT for deconditioning and finishing course of amoxicillin. Status at Discharge Functional status at discharge: uses cane/walker Overall status at discharge: patient is not back to baseline Time Spent with Patient Time attestation: Total time spent providing and/or coordinating discharge services: Exam Const: General: no acute distress HENMT: Mouth: Yes moist mucous membranes Eyes: General: appearance normal, both eyes and all related structures Pupils: Equal, round and reactive pupils present EOM: EOMs intact bila
[2023-08-04 13:47] LABS: SARS-CoV-2 RNA PCR Negative (Negative)
== END 2023-08-04 15:00 | DRG 690 ==
LOC: ANHED 15:49 → ANH3MEDSUR 18:35
PROVIDERS: Internal Medicine; Nurse Practitioner; Admitting Provider Student in an Organized Health Care Education/Training Program; Emergency Provider Emergency Medicine; PCP Family Medicine; Visit Provider Student in an Organized Health Care Education/Training Program
DX: N39.0 Urinary tract infection, site not specified (principal); N17.9 Acute kidney failure, unspecified; F33.2 Major depressive disorder, recurrent severe without psychotic features; K21.9 Gastro-esophageal reflux disease without esophagitis; R53.81 Other malaise; R11.2 Nausea with vomiting, unspecified; E78.5 Hyperlipidemia, unspecified; E87.6 Hypokalemia; I10 Essential (primary) hypertension; E03.9 Hypothyroidism, unspecified; F03.90 Unspecified dementia, unspecified severity, without behavioral disturbance, psychotic disturbance, mood disturbance, and anxiety; Z11.52 Encounter for screening for COVID-19; Z98.61 Coronary angioplasty status; Z23 Encounter for immunization; Z79.82 Long term (current) use of aspirin
CPT/HCPCS: 36415; 70450; 71046; 80048; 80053; 81001; 84439; 85025; 85027; 87635; 90471; 90694; 93005; 96365; 96366; 96372; 97110; 97116; 97161; 97166; 97530; 97535; 99285; A9270; G0008; G0378; J0696; J1650; J3480; J7030; J7040

== ENCOUNTER 2023-09-13 14:34 | Emergency (ER) | payer MEDICARE, BC, SELFPAY ==
[2023-09-13 14:38] VITALS: BP 103/81; PULSE 79; RESP 18; TEMP 36.9; O2SAT 96
[2023-09-13] MEDS: SODIUM CHLORIDE 0.9% IV 1,000 ML 999 ML IV CONT (16:19)
[2023-09-13 16:35] LABS: Basophils Absolute Auto 0.1 K/mm3 (0.0-0.1); Basophils Percent Auto 0.3 % (0.2-1.2); Eosinophils Absolute Auto 0.1 K/mm3 (0-0.3); Eosinophils Percent Auto 0.7 % (0-4.4); Hematocrit 41.9 % (42.0-52.0); Hemoglobin 14.4 g/dL (14.0-18.0); Immature Granulocyte Absolute 0.09 K/mm3 (0.00-0.031); Immature Granulocyte Percent A 0.5 % (0-0.5); Lymphocytes Absolute Auto 1.83 K/mm3 (0.9-3.2); Lymphocytes Percent Auto 10.4 % (18.3-44.2); Mean Corpuscular HGB Conc 34.4 g/dl (32-36); Mean Corpuscular Hemoglobin 29.8 pg (26-34); Mean Corpuscular Volume 86.6 fl (80-100); Mean Platelet Volume 9.5 fl (7.4-10.4); Monocytes Absolute Auto 1.7 K/mm3 (0.1-0.6); Monocytes Percent Auto 9.8 % (2.6-8.5); Neutrophils Absolute Auto 13.8 K/mm3 (1.3-6.7); Neutrophils Percent Auto 78.3 % (45.5-73.1); Platelet Count Result 203 k/mm3 (150-375); Red Blood Count 4.84 M/mm3 (4.6-6.20); Red Cell Distribution Width 13.3 % (11.5-14.5); White Blood Count 17.7 K/mm3 (4.5-10.0)
[2023-09-13 16:42] LABS: Bacteria Urine None Seen /hpf; Non Pathogenic Casts 0-2; RBC Urine >100 /hpf (0-2); Squamous Epithelial Cell Urine Occasional /hpf (Few); WBC Urine 21-50 /hpf
[2023-09-13 16:46] LABS: Alanine Aminotransferase 38 U/L (6-50); Albumin Level 4.1 g/dL (3.5-5.1); Alkaline Phosphatase 104 U/L (38-126); Anion Gap 9 mmol/L (8-16); Aspartate Amino Transferase 27 U/L (17-59); Bilirubin,Total 0.9 mg/dL (0.2-1.3); Blood Urea Nitrogen 18 mg/dL (9-20); Calcium 9.3 mg/dL (8.4-10.2); Carbon Dioxide 25 mmol/L (22-30); Chloride 106 mmol/L (98-107); Estimated CRCL calculation 31 ml/min; Estimated Glomerular Filt Rate 41; Glucose 103 mg/dL (65-110); Potassium 3.3 mmol/L (3.4-5.0); Sodium 140 mmol/L (137-145)
[2023-09-13 16:50] LABS: Appearance Urine Turbid (Clear); Blood Urine 3+ (Negative); Color Urine Red (Yellow); Glucose Urine UA Negative (Negative); Ketones Urine Negative (Negative); Leukocyte Esterase Ur 2+ LEU/UL (Negative); Nitrate Urine Negative (Negative); Protein Urine 3+ mg/dL (Negative); Specific Grav Ur 1.017 (1.001-1.035); pH Urine 7.5 (5.0-9.0)
[2023-09-13 17:05] LABS: Add Urine Microscopic? YES
[2023-09-13 17:18] VITALS: BP 139/84; PULSE 84; RESP 18; O2SAT 97
[2023-09-13] MEDS: MORPHINE SULFATE (*CRX) 4 MG/ML INJ IV PUSH (17:32)
--- NOTE | 2023-09-13 17:50 | ED.MALEGU ---
HPI - Male Genitourinary General Chief complaint: Urogenital-Male Stated complaint: urinary catheter issues Time Seen by Provider: 09/13/23 14:42 History of Present Illness HPI Narrative: Patient is an 87-year-old male who presents ER after self extricating his Newton catheter. He had sudden bleeding after he did this earlier today. He had a Newton placed today due to urinary obstruction. Patient is demented can not provide no history. Related Data Home Medications Medication Instructions Recorded Confirmed aspirin 81 mg tablet,delayed 81 mg PO DAILY 10/09/19 09/12/23 release juhjcpikydcn-zik-kllrq acid-vit 1 tablet PO DAILY 04/19/20 09/12/23 K-lycop 400 mcg-20 mcg-370 mcg tablet (Men's 50 Plus Multivitamin) vitamin B complex (B 1 tablet PO DAILY 08/23/20 09/12/23 Complex-Vitamin B12 tablet) omega-3 fatty acids 500 mg PO DAILY 04/28/21 09/12/23 memantine 5 mg tablet 5 mg PO BID 10/16/22 09/12/23 levothyroxine 13 mcg capsule 13 mcg PO DAILY 07/31/23 09/12/23 Allergies Allergy/AdvReac Type Severity Reaction Status Date / Time lisinopril Allergy Unknown cough Verified 07/31/23 17:48 Review of Systems Review of Systems: ROS unobtainable: Yes unobtainable due to mental status [facility] Past Medical History Medical History (Updated 09/13/23 @ 17:58 by Fran Sarmiento MD) Actinic keratosis Cataract Dyslipidemia Encounter for immunization (06/11/19) Encounter for Medicare annual wellness exam Esophagitis [employer] use of drug Nausea & vomiting Severe recurrent major depression Surgical History Surgical History H/O angioplasty H/O arthroplasty History of back surgery Family History Family History Mother Family history of malignant neoplasm of breast in first degree relative Other No family history of cardiovascular disease Social History Social History Smoking status: Never smoker Alcohol intake: never Substance use: never Substance use type: does not use Lack of Transportation: No Lack of Food: Never True Current Housing: I Have Housing Concerned About Future Housing: No Difficulty Paying Gas/Electric Bills: No Difficulty Paying for Meds: No Currently Unemployed: No Education: Decline to Answer Difficulty w/ Childcare or Family Care: No Living arrangements: with family Occupation/Education: retired Gender identity (if verbalized by the patient): Male Spiritual care concerns: No Exam Narrative: GENERAL: Well-appearing, well-nourished, and in no acute distress. HEAD: Normocephalic, atraumatic. ENT: Mucous membranes moist. CHEST: Clear to auscultation. No respiratory distress. HEART: Regular rate and rhythm. Normal peripheral pulses. ABDOMEN: Soft, nontender, nondistended. EXTREMITIES: Normal range of motion. No edema. SKIN: Warm, dry, no rash. NEURO: Alert and oriented x2. PSYCH: Normal mood and affect. Course Course Emergency Course: Patient with mild pain from Newton so given morphine. Patient with leukocytosis but felt this was related to trauma from pulling out his own Newton. Urine micro with evidence trauma given white count will give him some cefuroxime for home, ceftriaxone here. Apparently patient did not have traumatic removal of the Newton it was intentional removed by the care staff. Patient is able to void in his diaper after prolonged observation. Family comfortable with discharge back to facility. Vital Signs Vital signs: Vital Signs Temperature 98.4 F 09/13/23 14:38 Pulse Rate 79 09/13/23 14:38 Respiratory Rate 18 09/13/23 14:38 Blood Pressure 103/81 09/13/23 14:38 Pulse Oximetry 96 09/13/23 14:38 Oxygen Delivery Room Air 09/13/23 14:38 Temperature 98.4 F 09/13/23 14:38 Pulse Rate 72 09/13/23 20:21 Respiratory Rate
[2023-09-13 19:20] VITALS: BP 124/80; PULSE 72; RESP 16; O2SAT 97
[2023-09-13 20:21] VITALS: BP 114/74; PULSE 72; RESP 16; O2SAT 100
[2023-09-13 21:22] VITALS: BP 124/68; PULSE 70; RESP 16; O2SAT 100
== END 2023-09-13 21:23 ==
PROVIDERS: Emergency Provider Emergency Medicine; PCP Family Medicine
DX: Z43.6 Encounter for attention to other artificial openings of urinary tract (principal); N39.0 Urinary tract infection, site not specified; E78.5 Hyperlipidemia, unspecified; G30.9 Alzheimer's disease, unspecified; F02.80 Dementia in other diseases classified elsewhere, unspecified severity, without behavioral disturbance, psychotic disturbance, mood disturbance, and anxiety; F33.9 Major depressive disorder, recurrent, unspecified; Z98.61 Coronary angioplasty status; Z96.60 Presence of unspecified orthopedic joint implant; Z79.82 Long term (current) use of aspirin
CPT/HCPCS: 36415; 51702; 80053; 81001; 85025; 87086; 96361; 96365; 96375; 99284; J0696; J2270; J7030